=== PATIENT | male | born 1965 | race African-American/Black ===

== ENCOUNTER 2017-12-19 17:05 | Emergency (ER) | payer SELFPAY ==
[~2017-12-19] VITALS: Ht 175.3 cm; Wt 75.0 kg
[2017-12-19] MEDS ORDERED: SODIUM CHLORIDE 0.9% 1,000 ML IV ONE (22:08)
[2017-12-19] MEDS ORDERED: IBUPROFEN 600MG TABLET PO ONE (22:15)
[2017-12-20] MEDS ORDERED: KETOROLAC 15MG/ML VIAL IV ONE (01:15)
[2017-12-20 05:32] VITALS: BP 105/60
== END 2017-12-20 05:38 | disposition home or self-care (01) ==
LOC: ER 17:20
DX: M25.511 Pain in right shoulder (principal); Y08.89XA Assault by other specified means, initial encounter; F41.9 Anxiety disorder, unspecified; I10 Essential (primary) hypertension; K85.90 Acute pancreatitis without necrosis or infection, unspecified; F10.129 Alcohol abuse with intoxication, unspecified; Y93.89 Activity, other specified; Y92.89 Other specified places as the place of occurrence of the external cause; Y99.8 Other external cause status
CPT/HCPCS: 36415; 70450; 73030; 96361; 96374; 99285; G0482; J1885; J7030; Z7610